=== PATIENT | female | born 1970 | race Caucasian/White ===

== ENCOUNTER → 2023-04-24 08:49 | Outpatient (REF) | payer OTHER, SELFPAY | LOC: HWRAD 08:49 | PROVIDERS: ATTENDING PHYSICIAN Physician Assistant | DX: R10.2 Pelvic and perineal pain (principal); M25.552 Pain in left hip; M79.652 Pain in left thigh; R20.2 Paresthesia of skin | CPT/HCPCS: 72110; 73502; 76830; 76856 ==

== ENCOUNTER → 2023-05-19 08:05 | Outpatient (REF) | payer OTHER, SELFPAY | LOC: HWRAD 08:05 | PROVIDERS: ATTENDING PHYSICIAN Physician Assistant | DX: N83.201 Unspecified ovarian cyst, right side (principal); Q50.4 Embryonic cyst of fallopian tube; R10.2 Pelvic and perineal pain | CPT/HCPCS: 72193; Q9967 ==

== ENCOUNTER → 2023-08-18 07:34 | Outpatient (REF) | payer OTHER, SELFPAY | LOC: WDC 07:34 | PROVIDERS: ATTENDING PHYSICIAN Physician Assistant | DX: Z12.31 Encounter for screening mammogram for malignant neoplasm of breast (principal) | CPT/HCPCS: 77063; 77067 ==

== ENCOUNTER → 2024-08-23 07:30 | Outpatient (REF) | payer OTHER, SELFPAY | LOC: WDC 07:30 | PROVIDERS: ATTENDING PHYSICIAN Physician Assistant | DX: Z12.31 Encounter for screening mammogram for malignant neoplasm of breast (principal) | CPT/HCPCS: 77063; 77067 ==